=== PATIENT | male | born 1935 | race Caucasian/White ===

== ENCOUNTER 2017-05-04 11:39 | Outpatient (CLI) | payer MEDICARE, OTHER ==
[2017-05-04 12:11] LABS: MEAN CORPUSCULAR HEMOGLOBIN 29.1 pg (28.0-34.0); MEAN CORPUSCULAR VOLUME 85.9 fl (80.0-100.0)
[2017-05-04 12:17] LABS: eGFR (African) > 60; eGFR (Non-African) > 60
--- NOTE | 2017-05-04 14:02 | Diagnostic Imaging Report ---
CHARLEY GUTIÉRREZ [facility] [address] [facility] [address] [place], [place]. [address] Report Submission Date: May 04, 2017 12:20:35 PM CDT Patient Study Name: DARIO WHITNEY Date: May 04, 2017 11:51:10 AM CDT Modality Type: CR Gender: M Description: ABDOMEN : 35 Institution: [facility] Physician: CHARLEY GUTIÉRREZ Examination: Abdomen series History: Abdominal discomfort Findings: 2 views obtained of the abdomen. No abnormal dilation of the large or small bowel. Air and stool throughout the large bowel. No suspicious calcification projecting over the renal fossa or the lower pelvic region. Osseous structures demonstrate degenerative changes. Anterior mid abdominal surgical coils. Impression: No ileus or obstruction by plain film sensitivity. No suspicious calcifications by plain film sensitivity. Electronically signed on May 04, 2017 12:20:35 PM CDT by: Vidal WYNNE
[2017-05-04 14:15] LABS: EOSINOPHILS % 1 % (0-7); MONOCYTES % 13 % (0-11); SEGMENTED NEUTROPHILS % 23 % (39-79)
== END 2017-05-04 11:40 ==
LOC: RAD 11:39
PROVIDERS: ATTEND Family Medicine
DX: R10.9 Unspecified abdominal pain (principal)
CPT/HCPCS: 36415; 74000; 80053; 85025

== ENCOUNTER 2017-12-05 17:19 | Emergency (ER) | payer MEDICARE, OTHER ==
--- NOTE | 2017-12-05 18:17 | ED Physician Documentation ---
General Adult - HISTORIAN Historian: patient - HPI Stated Complaint: "Tool Chest and tools fell on me" Chief Complaint: General Adult Additional Information: 82yo white male with a history thrombocytopenia with platelets in the 30-40, 000. Has trouble with bleeding due to this. Patient was pulling drawers out from a tool chest when it fell over on him. He denies any head trauma. Patient complains of pain in th left hip and elbow area and right hand. He has some swelling to the right hand. Onset: minutes Timing: still present - ROS CONST: no problems - PAST HX Past History: other (thrombocyopenia) Immunizations: denies: tetanus (greater then ten years) - SOCIAL HX Smoking History: non-smoker Alcohol Use: none Drug Use: none - FAMILY HX Family History: No - VITAL SIGNS Vital Signs: Vital Signs Temp Pulse Resp BP Pulse Ox 98.2 F 64 16 153/70 98 12/05/17 17:36 12/05/17 17:36 12/05/17 17:36 12/05/17 17:36 12/05/17 17:36 - REVIEWED ASSESSMENTS Nursing Assessment Reviewed: Yes Vitals Reviewed: Yes <Merrill Woodruff - Last Filed: 12/05/17 19:01> - VITAL SIGNS Vital Signs: Vital Signs Temp Pulse Resp BP Pulse Ox 98.2 F 64 16 153/70 98 12/05/17 17:36 12/05/17 17:36 12/05/17 17:36 12/05/17 17:36 12/05/17 17:36 <Dejuan Goetz - Last Filed: 12/05/17 22:08> - PAST HX Allergies/Adverse Reactions: Allergies Allergy/AdvReac Type Severity Reaction Status Date / Time No Known Allergies Allergy Verified 12/05/17 17:55 Progress - Progress Progress: X-ray R hand: neg X-ray L elbow: neg X-ray L hip: neg dressings applied to skin tears, L elbow & forearm. Tdap 0.5 ml IM <Dejuan Goetz - Last Filed: 12/05/17 22:08> ED Results Lab/Radiology - Lab Results Lab Results: Lab Results 12/05/17 19:00 WBC 3.10 K/ul L K/ul (4.00-12.00) RBC 3.93 M/ul M/ul (3.90-5.20) Hgb 11.4 g/dL L g/dL (12.0-18.0) Hct 34.5 % L % (37.0-53.0) MCV 87.7 fl fl (80.0-100.0) MCH 29.1 pg pg (28.0-34.0) MCHC 33.1 g/dL g/dL (30.0-36.0) RDW 14.4 % H % (11.3-14.3) Plt Count 49 K/mm3 L K/mm3 (130-400) - Orders Orders: ED Orders Category Date Time Status ELBOW 2 VIEWS [RAD] Stat Exams 12/05/17 Ordered HAND 3 VIEWS OR MORE [RAD] Stat Exams 12/05/17 Ordered LT HIP 2VIEW COMPLETE [RAD] Routine Exams 12/05/17 Ordered CBC/PLATELET/DIFF Routine Lab 12/05/17 19:00 Completed Diph,Pertuss(Acell),Tet Vac/Pf [Adacel] Med 12/05/17 20:00 Ordered 0.5 ml IM 1T <Dejuan Goetz - Last Filed: 12/05/17 22:08> General Adult Physical Exam - PHYSICAL EXAM GENERAL APPEARANCE: mild distress EENT: eye inspection normal, ENT inspection normal NECK: normal inspection, thyroid normal, supple. No: lymphadenopathy RESPIRATORY: no resp distress, chest non-tender, breath sounds normal. No: wheezes, rales, rhonchi CVS: reg rate & rhythm, heart sounds normal, equal pulses, no murmur ABDOMEN: soft, no organomegaly, normal bowel sounds, no abdominal bruit, no distension BACK: normal inspection, no CVA tenderness SKIN: warm/dry, other (mild skin tear to left elbow and forearm, not bleeding at this time) EXTREMITIES: other (patient has a large hematoma measuring approximately 5 cm over the dorsum of the right hand. No bony abnormalities could be appreciated. Patient has some tenderness to palpation over the left greater trochanteric area. No bony abnormalities could be appreciated. Do does appear to be some soft tissue swelling over the greater trochanteric area.) NEURO: oriented X3, CN's nml as tested, motor nml, sensation nml, mood/affect nml, cognition normal <Merrill Woodruff - Last Filed: 12/05/17 19:01> Discharge <Merrill Woodruff - Last Filed: 12/05/17 19:01> Decision to Admit: NO Decision Time: 20:19 <Dejuan Goetz - Last Filed: 12/05/17 22:08> Clincal Impression: skin tears, joint soreness, fall, Hx thrombocytopenia Referrals: Simran Wick MD [Primary Care Provider] - Condition: Good Disposition: 01 HOME, SELF-CARE
[2017-12-05 19:19] LABS: MEAN CORPUSCULAR HEMOGLOBIN 29.1 pg (28.0-34.0); MEAN CORPUSCULAR VOLUME 87.7 fl (80.0-100.0)
[2017-12-05] MEDS: DIPH,PERTUSS(ACELL),TET VAC/PF 0.5 ML DISP.SYRIN IM SCH (19:55)
[2017-12-05 20:47] VITALS: BP 148/72
--- NOTE | 2017-12-06 07:08 | Diagnostic Imaging Report ---
CLAUDIO SHANKAR [facility] [address] [facility].[address] [address] Report Submission Date: December 05, 2017 8:03:22 PM CDT Patient Study Name: DARIO WHITNEY Date: December 05, 2017 7:21:41 PM CDT Modality Type: DX Gender: M Description: PELVIS : 35 Institution: [facility] Physician: CLAUDIO SHANKAR 2 views left hip Clinical history: Left hip pain Findings: No acute fracture dislocation is identified. Mild joint space narrowing. Impression: Negative Electronically signed on December 05, 2017 8:03:22 PM CDT by: Max WYNNE
--- NOTE | 2017-12-06 07:09 | Diagnostic Imaging Report ---
CLAUDIO SHANKAR [facility] [address] [facility].[address] [address] Report Submission Date: December 05, 2017 8:02:30 PM CDT Patient Study Name: DARIO WHITNEY Date: December 05, 2017 7:17:57 PM CDT Modality Type: DX Gender: M Description: UPPER EXTREMITY : 35 Institution: [facility] Physician: CLAUDIO SHANKAR 2 views of the left elbow Clinical history: Left elbow pain Findings: The alignment of the elbow joint is normal. There is no significant joint effusion. Small calcification is seen posterior to the olecranon, indeterminate. This is likely old given the lack of joint effusion. Impression: Negative Electronically signed on December 05, 2017 8:02:30 PM CDT by: Max WYNNE
--- NOTE | 2017-12-06 07:10 | Diagnostic Imaging Report ---
CLAUDIO SHANKAR [facility] [address] [facility].[address] [address] Report Submission Date: December 05, 2017 8:01:34 PM CDT Patient Study Name: DARIO WHITNEY Date: December 05, 2017 7:13:42 PM CDT Modality Type: DX Gender: M Description: UPPER EXTREMITY : 35 Institution: [facility] Physician: CLAUDIO SHANKAR 3 views of the right hand Clinical history: Right hand pain Findings: Distal radius and ulna are intact. Alignment is normal. No fractures are identified. Impression: Negative Electronically signed on December 05, 2017 8:01:34 PM CDT by: Max WYNNE
== END 2017-12-05 20:35 | disposition home or self-care (01) ==
LOC: ED 17:19
DX: M25.541 Pain in joints of right hand (principal); M25.522 Pain in left elbow; M25.552 Pain in left hip; W19.XXXA Unspecified fall, initial encounter; S51.802A Unspecified open wound of left forearm, initial encounter; Y92.9 Unspecified place or not applicable
CPT/HCPCS: 73070; 73130; 85025; 90715; 96372; 99284

== ENCOUNTER 2018-03-06 13:39 | Outpatient (CLI) | payer MEDICARE, OTHER ==
[2018-03-06 14:03] LABS: MEAN CORPUSCULAR HEMOGLOBIN 30.1 pg (28.0-34.0); MEAN CORPUSCULAR VOLUME 89.1 fl (80.0-100.0)
--- NOTE | 2018-03-06 14:28 | Diagnostic Imaging Report ---
[facility] [address] [facility].[address] [address] Report Submission Date: Mar 06, 2018 2:07:04 PM CDT Patient Study Name: DARIO WHITNEY Date: Mar 06, 2018 1:48:36 PM CDT Modality Type: DX Gender: M Description: CHEST : 35 Institution: [facility] Physician: CHARLEY GUTIÉRREZ Pa and lateral chest Clinical history :short of breath and coughing Technique pa and lateral upright Findings: The lung lanier are clear. I see no hilar or mediastinal mass. The aorta is tortuous and calcified. There is no pleural effusion. Thoracic spondylosis is present. Impression: No acute pulmonary disease Tortuous thoracic aorta Electronically signed on Mar 06, 2018 2:07:04 PM CDT by: Maikol WYNNE
[2018-03-06 15:31] LABS: BASOPHILS % 1 % (0-2); MONOCYTES % 13 % (0-11); SEGMENTED NEUTROPHILS % 27 % (39-79)
[2018-03-06 15:33] LABS: GIANT PLATELETS PRESENT (NEGATIVE)
== END 2018-03-06 13:40 ==
LOC: LAB 13:39
PROVIDERS: ATTEND Family Medicine
DX: R04.2 Hemoptysis (principal)
CPT/HCPCS: 71046; 80048; 85025

== ENCOUNTER 2018-03-07 09:24 | Outpatient (CLI) | payer MEDICARE, OTHER ==
--- NOTE | 2018-03-07 18:45 | Diagnostic Imaging Report ---
CHARLEY GUTIÉRREZ [facility] [address] [facility] [address] [place], [place]. [address] Report Submission Date: Mar 07, 2018 10:25:30 AM CDT Patient Study Name: DARIO WHITNEY Date: Mar 07, 2018 9:47:52 AM CDT Modality Type: CT\SR Gender: M Description: CT CHEST W/ CONTRAST : 35 Institution: [facility] Physician: CHARLEY GUTIÉRREZ CT chest with contrast CLINICAL HISTORY: CT CHEST WITH, HEMOPTYSIS, LOW PLATELETS, PT STATES HE HAS BEEN COUGHING UP MORE PHLEGM THAN NORMAL (Hx) / ITS.REASON hemoptysis; low Plt. TECHNIQUE: 3 mm contiguous axial images of the chest with contrast. Sagittal and coronal reconstructions. FINDINGS: The heart size is enlarged. The pulmonary vasculature is normal. Are small mediastinal lymph nodes, which are likely reactive. Small right measures 9 mm. Additional right hilar lymph node is noted which measures 1.1 cm. These are indeterminate. There is no pleural effusion, pneumothorax or alveolar consolidation. There is mild atelectasis in the lung bases. Tiny nodular density is noted in the right middle lobe which may reflect a noncalcified granuloma scar. Additional tiny nodules in the lingula which is also may reflect a noncalcified granulomas. IMPRESSION: 1. No acute disease in the chest 2. Indeterminate right hilar lymph nodes, followup is recommended. 3. Small nodules in the lingula and right middle lobe, which likely refelect noncalcified granulomas. Electronically signed on Mar 07, 2018 10:25:30 AM CDT by: Max WYNNE
== END 2018-03-07 09:25 ==
LOC: RAD 09:24
PROVIDERS: ATTEND Family Medicine
DX: R04.2 Hemoptysis (principal)
CPT/HCPCS: 71260; Q9967

== ENCOUNTER 2018-05-08 11:21 | Outpatient (CLI) | payer MEDICARE, OTHER ==
[2018-05-08 20:41] LABS: MCH. 28.6 pg (28.0-34.0); MCV 85.3 fL (80.0-100.0)
== END 2018-05-08 11:23 ==
LOC: LAB 11:21
PROVIDERS: ATTEND Family Medicine
DX: R04.0 Epistaxis (principal)
CPT/HCPCS: 36415; 85025

== ENCOUNTER 2018-09-05 15:29 | Outpatient (CLI) | payer MEDICARE, OTHER ==
[2018-09-05 16:07] LABS: MEAN CORPUSCULAR HEMOGLOBIN 28.8 pg (28.0-34.0)
[2018-09-05 16:08] LABS: eGFR (Non-African) 55
--- NOTE | 2018-09-05 21:52 | Diagnostic Imaging Report ---
CHARLEY GUTIÉRREZ [facility] [address] [facility] [address] [address] Report Submission Date: Sep 05, 2018 4:04:40 PM PARTS COORDINATOR Patient Study Name: DARIO WHITNEY Date: Sep 05, 2018 3:45:26 PM PARTS COORDINATOR Modality Type: DX Gender: M Description: CHEST 2VIEW : 35 Institution: [facility] Physician: CHARLEY GUTIÉRREZ Examination: PA and lateral chest. History: Evaluate lung lanier. COUGH Comparison exam: None provided. Findings: PA and lateral views of the chest demonstrates a normal cardiac and mediastinal silhouette. Tortuous aorta. No focal infiltrate. No blunting of the costophrenic margins. Osseous structures are appropriate for age. Impression: No acute pulmonary process. Electronically signed on Sep 05, 2018 4:04:40 PM PARTS COORDINATOR by: Vidal WYNNE
== END 2018-09-05 15:32 ==
LOC: LAB 15:29
PROVIDERS: ATTEND Family Medicine
DX: R04.2 Hemoptysis (principal)
CPT/HCPCS: 36415; 71046; 80048; 85027

== ENCOUNTER 2018-09-06 09:48 | Outpatient (CLI) | payer MEDICARE, OTHER ==
--- NOTE | 2018-09-06 14:20 | Diagnostic Imaging Report ---
<p>Your browser does not support iframes.</p> CHARLEY GUTIÉRREZ [facility] [address] [facility] [address] [place] [address]. [address] Report Submission Date: Sep 06, 2018 2:16:38 PM AUTOMATIC MOUNTER Patient Study Name: DARIO WHITNEY Date: Sep 06, 2018 10:02:15 AM AUTOMATIC MOUNTER Modality Type: CT\SR Gender: M Description: CT CHEST W/O CONTRAST : 35 Institution: [facility] Physician: CHARLEY GUTIÉRREZ Examination: CT chest History: PT STATES COUGHING BLOOD X2 WEEKS Comparison exams: 07 March 2018 Technique: CT chest without contrast protocol Findings: Emphysematous changes and peripheral scarring. Stable subcentimeter peripheral nodular densities involving the lung bases bilaterally. No spiculated lesions. Thoracic aorta demonstrates peripheral atherosclerotic disease. Anterior mediastinum and rach are without gross mass or pathologic adenopathy: though sensitivity is reduced on a noncontrast exam. Cardiac silhouette not enlarged. No pericardial effusion. Vascular calcifications. Lower neck structures, upper abdominal organs, and osseous structures are without gross abnormality. Impression: No acute parenchymal process. Stable lung base scarring and subcentimeter nodular densities. Exam performed without contrast limiting evaluation for mediastinal hilar adenopathy. Electronically signed on Sep 06, 2018 2:16:38 PM AUTOMATIC MOUNTER by: Vidal WYNNE
== END 2018-09-06 09:50 ==
LOC: RAD 09:48
PROVIDERS: ATTEND Family Medicine
DX: R04.2 Hemoptysis (principal); R91.8 Other nonspecific abnormal finding of lung field
CPT/HCPCS: 71250

== ENCOUNTER 2018-09-18 09:39 | Outpatient (CLI) | payer MEDICARE, OTHER ==
[2018-09-18 10:19] LABS: eGFR (Non-African) > 60
--- NOTE | 2018-09-18 15:45 | Diagnostic Imaging Report ---
CHARLEY GUTIÉRREZ [facility] [address] [facility] [address] [address] Report Submission Date: Sep 18, 2018 3:23:09 PM VIDEO INTERN Patient Study Name: DARIO WHITNEY Date: Sep 18, 2018 2:14:39 PM VIDEO INTERN Modality Type: CT\SR Gender: M Description: CT CHEST W/ CONTRAST : 35 Institution: [facility] Physician: CHARLEY GUTIÉRREZ Exam: CT chest with contrast. History: Hemoptysis. Axial images through the thorax after IV infusion of contrast material is submitted along with sagittal and coronal reformatted images. The examination is compared to a study dated March 07, 2018. Lung lanier appear well aerated without bisi consolidation or effusion. Heart size remains stable since the previous study. The thoracic aorta and main stem pulmonary artery are of normal caliber. A common bovine origin to the right brachiocephalic artery and left common carotid artery is noted. And [place] in origin to the left vertebral artery from the aortic arch is noted. Mild soft tissue nodularity in the perihilar regions is unchanged in superior study. No bisi abnormality in the upper abdomen is identified. Degenerative changes throughout the thoracic spine are noted. Impression: No bisi consolidation or effusion. Common bovine origin to the right brachiocephalic artery and left common carotid artery is noted. Origin from the aortic arch of the vertebral artery on the left is noted. Subtle nodularity in the perihilar regions identified previously has not changed in the interval. Electronically signed on Sep 18, 2018 3:23:09 PM VIDEO INTERN by: Stephen WYNNE
== END 2018-09-18 09:40 ==
LOC: LAB 09:39
PROVIDERS: ATTEND Family Medicine
DX: R04.2 Hemoptysis (principal)
CPT/HCPCS: 36415; 71260; 80048; Q9967

== ENCOUNTER 2019-05-09 10:33 | Outpatient (CLI) | payer MEDICARE, OTHER ==
--- NOTE | 2019-06-03 10:33 | Diagnostic Imaging Report ---
CHARLEY GUTIÉRREZ [facility] [address] [address] Report Submission Date: May 09, 2019 11:21:39 AM CDT Patient Study Name: DARIO WHITNEY Date: May 09, 2019 10:46:28 AM CDT Modality Type: CT\SR Gender: M Description: CT SINUSES : 35 Institution: [facility] Physician: CHARLEY GUTIÉRREZ CT sinuses History: Congestion cough for 1 month Technique: Axial non contrast images of the sinuses with coronal and sagittal reconstruction Findings: Mild maxillary sinus mucosal thickening. Remaining sinuses are unremarkable. Soft tissues are normal. Impression: Mild maxillary sinus mucosal thickening. Electronically signed on May 09, 2019 11:21:39 AM CDT by: Dejuan WYNNE
--- NOTE | 2019-06-03 10:34 | Diagnostic Imaging Report ---
CHARLEY GUTIÉRREZ [facility] [address] [facility] [address] [place], [place]. [address] Report Submission Date: May 09, 2019 11:17:45 AM CDT Patient Study Name: DARIO WHITNEY Date: May 09, 2019 10:35:00 AM CDT Modality Type: DX Gender: M Description: CHEST 2VIEW : 35 Institution: [facility] Physician: CHARLEY GUTIÉRREZ Exam: Chest two views. History: Cough and congestion. The examination is compared to study dated September 05, 2018. Lung lanier are well aerated without bisi consolidation or effusion. Heart and mediastinal contour are normal. No bony abnormalities are seen. Impression: No bisi consolidation or effusion. Electronically signed on May 09, 2019 11:17:45 AM CDT by: Stephen WYNNE
== END 2019-05-09 10:47 | disposition home or self-care (01) ==
LOC: LAB 10:33
PROVIDERS: ATTEND Family Medicine
DX: R05 Cough (principal); R09.89 Other specified symptoms and signs involving the circulatory and respiratory systems
CPT/HCPCS: 70486; 71020; 71046

== ENCOUNTER 2019-06-11 14:08 | Outpatient (CLI) | payer MEDICARE, OTHER ==
[2019-06-11 15:48] LABS: eGFR (Non-African) > 60
== END 2019-06-11 14:18 ==
LOC: RT 14:08
PROVIDERS: ATTEND Family Medicine
DX: R53.83 Other fatigue (principal)
CPT/HCPCS: 36415; 80053; 84443; 85027; 93005